=== PATIENT | male | born 1950 | race Caucasian/White ===

== ENCOUNTER → 2021-06-05 09:16 | Outpatient (CLI) | payer MEDICARE, SELFPAY ==
[2021-06-05 12:51] LABS: COVID19 -Nasal RAPID Negative (Negative)
== END ==
PROVIDERS: PCP Family Medicine; Visit Provider Family Medicine Sleep Medicine
DX: Z20.822 Contact with and (suspected) exposure to COVID-19 (principal)
CPT/HCPCS: 87635; C9803

== ENCOUNTER 2021-06-08 10:14 | Day surgery (SDC) | payer MEDICARE, SELFPAY ==
--- NOTE | 2021-06-08 | PATH_ITS ---
[facility] Accession Number: [id number] No. of containers..02 Tissue . 01 Material submitted: . PART A: colon - CECUM POLYP X2 PART B: colon - ASCENDING COLON POLYP . 02 Diagnosis: A. Cecal Polyps, Biopsies: Tubular adenoma x2. . B. Ascending Colon Polyp, Biopsy: Tubular adenoma. MRV 06/11/2021 1046 Local . 02 Electronically signed: . Drew Gao MD, PhD, Pathologist NPI- [id number] . 01 Gross description: . Part A: CECUM POLYP X2: Received in formalin are 2 fragment(s) of montoya, soft tissue measuring 0.3 x 0.3 x 0.2 cm to 0.7 x 0.2 x 0.2 cm submitted entirely in 1 cassette(s) Part B: ASCENDING COLON POLYP: Received in formalin is 1 fragment(s) of montoya, soft tissue measuring 0.5 x 0.3 x 0.3 cm submitted entirely in 1 cassette(s) /DMITRIY 06/09/20211957 Local . 02 Pathologist provided ICD-10: D12.0, D12.2 . 02 CPT . 653066, 522425 Specimen Comment: A courtesy copy of this report has been sent to [phone] Performed at: 01 [facility] [address], [place], [place] [id number] MD Renny Gunter MD Phone: [phone] Performed at: 02 [facility] [address] [place], [place] [id number] MD Lenka Andrews MD Phone: [phone]
[2021-06-08 10:53] VITALS: BP 118/78; PULSE 52; RESP 16; TEMP 36.7; O2SAT 98; BMI 26.5
[2021-06-08] MEDS: SODIUM CHLORIDE 0.9% 1,000 ML 84 ML IV (11:15)
--- NOTE | 2021-06-08 11:46 | PM.HP.1 ---
History of Present Illness History of Present Illness Date Patient Seen: 06/08/21 Time Patient Seen: 11:47 Chief complaint: COLONOSCOPY Narrative: Reported history of colon polyps. Last exam was 10 years ago. Patient History Family & Social History Social History: household members spouse Tobacco & Substance use: Smoking Status Never smoker alcohol intake frequency a few times a month Substance Use Type does not use Meds Home Medications and Allergies Home Medications Medication Instructions Recorded Confirmed Type No Known Home Medications 06/08/21 06/08/21 History Allergies Allergy/AdvReac Type Severity Reaction Status Date / Time No Known Drug Allergies Allergy Verified 06/08/21 10:52 Review of Systems Review of Systems ROS: Yes All systems reviewed with the patient and are negative except as otherwise documented Integumentary/Breasts Skin/Breast: Reports rash Comments: Right thigh x2 weeks Exam Vital Signs (past 8 hours): - 06/08/21 10:53 Temperature 98.1 F Pulse Rate 52 L Respiratory Rate 16 Blood Pressure 118/78 Pulse Oximetry 98 Oxygen Delivery Method Room Air Const General: cooperative and comfortable Orientation: alert HENMT Head: normocephalic Ears: external ears normal Nose: external nose normal Face and sinus: normal facial exam Mouth: oral mucosae normal Eyes General: appearance normal, both eyes and all related structures Neck Neck: normal visual inspection Chest Chest: normal inspection of the chest Resp Effort & Inspection: normal respiratory effort Cardio Rate: regular rate GI Inspection: normal to inspection Skin General: no rashes or lesions noted and No jaundice Rashes: rashes noted (Right lateral thigh an approximately 10 cm patch of maculopapular spots) Neuro General: patient alert and moves all extremities Cognition: normal cognition Speech: speech normal Extrem General: no pedal edema Psych Appearance: grossly normal Assessment & Plan Assessment & Plan narrative: 71-year-old male with personal history of colon polyps. Colonoscopy is planned for today. Time Spent With Patient Critical Care time: I spent a total of [] minutes of critical care time on this patient's care today; this time is exclusive of procedural time.
--- NOTE | 2021-06-08 11:50 | PM.PREOP ---
Pre-operative Note COVID-19 COVID-19 status: Negative Result date/Date tested (Pos, Neg/Pending): 06/05/21 Criteria for continued procedure: Possibility delay results in more complex future surgery or treatment Interval Note History & Physical reviewed/Exam performed by Physician: Yes Changes to H&P: No ASA Class (for procedural sedation): II
--- NOTE | 2021-06-08 12:52 | PM.OP.COLON ---
Operative Date/Time/Diagnoses Date of procedure: 06/08/21 Time of procedure: 12:53 Pre-op diagnosis: Personal history of colon polyps Post-op diagnosis: same Procedure & Clinicians Study performed: Colonoscopy with hot and cold snare polypectomies Same procedure as scheduled: Yes Indications: Personal history of colon polyps Surgeon: Filemon Anderson Procedure Notes SCOAP/Timeout: Done Procedure in detail: After the risks and benefits were explained, written and verbal informed consent was obtained. The patient was brought into the procedure room and placed into the left lateral decubitus position. Please see nurse electronics maintenance technician notes for sedation details. Digital rectal examination was accomplished. The scope was introduced into the patient and advanced under direct visualization to the cecum as identified by the appendiceal orifice and ileocecal valve. The scope was slowly withdrawn to carefully examine the mucosa for any defects or lesions. Comprehensive imaging was accomplished throughout the rectum including the dentate line. The colon was decompressed, the scope was then removed from the patient who tolerated the procedure well. Bowel prep fair with copious irrigation was rendered adequate Adult colonoscope Scope withdrawal time: 15 minutes Sedation minutes: 24 Complications: none Impression: There was some scattered diverticulosis noted in the left colon. In the cecum there was a diminutive 3 mm polyp removed with cold snare and a 6-7 mm sessile polyp removed with hot snare. In the ascending colon there was a 6 mm polyp sessile removed with hot snare. No additional significant pathology was appreciated throughout. Mild internal hemorrhoids grade 1 appreciated. Endoscopic diagnosis 1. Colon polyps 2. Diverticulosis 3. Grade 1 hemorrhoids Post-procedure Plan for aftercare: 1. Await histopathology 2. Repeat colonoscopy 3 years. Disposition: PACU
[2021-06-08 12:56] VITALS: BP 99/76; PULSE 60; RESP 18; TEMP 36.3; O2SAT 97
[2021-06-08 13:02] VITALS: BP 128/63; PULSE 57; RESP 15; O2SAT 98
[2021-06-08 13:06] VITALS: BP 120/82; PULSE 52; RESP 15; O2SAT 99
[2021-06-08 13:16] VITALS: BP 132/81; PULSE 50; RESP 15; TEMP 36.4; O2SAT 99
[2021-06-08 13:21] VITALS: BP 128/77; PULSE 49; RESP 16; O2SAT 99
== END 2021-06-08 13:33 | disposition home or self-care (01) ==
PROVIDERS: PCP Family Medicine; Referring Provider Internal Medicine Gastroenterology; Visit Provider Internal Medicine Gastroenterology
PROC: 0DJD8ZZ Inspection of Lower Intestinal Tract, Via Natural or Artificial Opening Endoscopic (ICD-10-PCS; CPT 45378; principal; 2021-06-08 11:30)
DX: Z12.11 Encounter for screening for malignant neoplasm of colon (principal); Z86.010 Personal history of colon polyps; K57.30 Diverticulosis of large intestine without perforation or abscess without bleeding; K64.0 First degree hemorrhoids; D12.0 Benign neoplasm of cecum; D12.2 Benign neoplasm of ascending colon
CPT/HCPCS: 45385; J2704

== ENCOUNTER → 2022-11-18 08:35 | Outpatient (CLI) | payer MEDICARE, SELFPAY ==
--- NOTE | 2022-11-18 08:36 | DI.RAD.S_ITS ---
PROCEDURE: FL BARIUM SWALLOW INDICATIONS: CHEST PRESSURE COMPARISON: None. FINDINGS: Function: There is moderate esophageal dysmotility. No elicited gastroesophageal reflux. There is normal transit of a calibrated barium tablet through the esophagus into the stomach. Morphology: Air-contrast images demonstrate normal mucosal morphology. There is a small sliding hiatal hernia. No esophageal strictures, extrinsic mass effects, or diverticula. Limited images of the stomach demonstrate normal appearance. IMPRESSION: 1. Moderate esophageal dysmotility. 2. Small sliding hiatal hernia. 3. No gastroesophageal reflux elicited during the exam. 4. No esophageal obstruction. Dictated by: Chris Brush M.D. on 11/18/2022 at 12:47 Approved by: Chris Brush M.D. on 11/18/2022 at 12:51
== END ==
PROVIDERS: PCP Family Medicine; Referring Provider Family Medicine; Visit Provider Family Medicine
DX: K22.4 Dyskinesia of esophagus (principal); K44.9 Diaphragmatic hernia without obstruction or gangrene; R07.89 Other chest pain
CPT/HCPCS: 74220

== ENCOUNTER → 2023-05-23 10:28 | Outpatient (CLI) | payer MEDICARE, SELFPAY ==
--- NOTE | 2023-05-23 | DI.MRI.S_ITS ---
PROCEDURE: MR SHOULDER RT WO CON INDICATIONS: DISORDER OF RIGHT ROTATOR CUFF TECHNIQUE: Noncontrast oblique coronal T2 fast spin echo with fat saturation, oblique sagittal T1 spin echo and T2 fast spin echo with fat saturation, axial T1 spin echo and T2 fast spin echo with fat saturation through the shoulder. COMPARISON: None. FINDINGS: Image quality: Excellent. Rotator cuff: Low-grade articular and bursal surface partial-thickness tear involving distal supraspinatus at its insertion on the humeral head is seen extending to musculotendinous junction. Moderate grade articular surface partial-thickness tear involving distal infraspinatus at its insertion on the humeral head is seen extending to musculotendinous junction. Low-grade intrasubstance partial-thickness tear is seen involving distal subscapularis. No full-thickness rotator cuff tendon rupture. Sagittal images demonstrate mild supraspinatus muscle atrophy. Significant edema within subscapularis muscle is noted with adjacent fluid. Bones and bursae: No bone marrow contusions or fractures. Moderate acromioclavicular joint osteoarthritic changes are seen with joint space narrowing and downward osteophyte formation depressing the musculotendinous junction of supraspinatus. The acromion demonstrates conventional anatomy, without an os acromiale. Small amount of subacromial subdeltoid bursal fluid is noted, no gross loose bodies. There is suggestion of subcortical cystic changes involving posterior and medial aspect of proximal humeral shaft/surgical neck. Capsule and soft tissues: There is signal abnormality and fraying of anterior inferior labrum at 4 to 6 o'clock position concerning for anterior-inferior labral tear. The long head of the biceps tendon demonstrates normal location and morphology. The rotator interval appears normal, without fibrosis. The coracohumeral ligament is normal in thickness. IMPRESSION: 1. Low-grade articular and bursal surface partial thickness tear involving distal supraspinatus extending to musculotendinous junction. Moderate grade articular surface partial-thickness tear involving distal infraspinatus extending to musculotendinous junction with suggestion of low to moderate grade intrasubstance partial-thickness tear involving infraspinatus muscle. Low-grade intrasubstance partial-thickness tear involving distal subscapularis. No full-thickness rotator cuff tendon or muscle rupture. Mild supraspinatus muscle atrophy. 2. Moderate acromioclavicular joint osteoarthritis. No fracture or dislocation. Small amount of subacromial subdeltoid bursal fluid, no gross loose bodies. Nonspecific subcortical cyst formation in posterior aspect of proximal left humeral shaft. 3. Suggestion of anterior inferior labral tear at 5 to 6 o'clock position. Dictated by: Blayne Anne M.D. on 05/23/2023 at 14:43 Approved by: Blayne Anne M.D. on 05/23/2023 at 14:52
== END ==
LOC: MRI 10:29
PROVIDERS: PCP Family Medicine; Referring Provider Orthopaedic Surgery; Visit Provider Orthopaedic Surgery
DX: M75.111 Incomplete rotator cuff tear or rupture of right shoulder, not specified as traumatic (principal); M19.011 Primary osteoarthritis, right shoulder; M67.911 Unspecified disorder of synovium and tendon, right shoulder
CPT/HCPCS: 73221

== ENCOUNTER → 2024-10-01 10:09 | Outpatient (CLI) | payer MEDICARE, SELFPAY ==
--- NOTE | 2024-10-01 11:07 | EKG_ITS ---
[facility] [address] [place] [address] Test Date: 2024-10-01 Pat Name: Mike Barry Jr Department: [facility] Room: Gender: Male Occupational Therapy Technician: [email or web address] : 1950 Requested By: Order Number: [id number] Reading MD: Brando Matthew Measurements Intervals [place] Rate: 40 P: 28 DC: 350 QRS: 57 QRSD: 94 T: 52 QT: 508 QTc: 414 Interpretive Statements Critical Test Result: Low HR Marked sinus bradycardia with 1st degree AV block Electronically Signed On 10-04-2024 17:08:38 PDT by Brando Matthew
== END ==
PROVIDERS: PCP Family Medicine; Referring Provider Internal Medicine Gastroenterology; Visit Provider Internal Medicine Gastroenterology
DX: R00.1 Bradycardia, unspecified (principal)
CPT/HCPCS: 93005

== ENCOUNTER 2024-10-31 11:12 | Day surgery (SDC) | payer MEDICARE, SELFPAY ==
[2024-10-31 11:35] VITALS: BP 138/68; PULSE 38; RESP 14; TEMP 36.5; O2SAT 100
--- NOTE | 2024-10-31 11:35 | P.HP_ITS ---
History of Present Illness History of Present Illness Date Patient Seen: 10/31/24 Chief complaint: Screening Colonoscopy Narrative: History of multiple colon polyps last colonoscopy 3 years ago [facility] Medical History (Updated 09/21/24 @ 08:45 by Natalie Schaefer RN) GERD (gastroesophageal reflux disease) Sinus node dysfunction Social History household members: spouse Smoking Status: Never smoker Meds Home Medications and Allergies Home Medications ?Medication ?Instructions ?Recorded ?Confirmed ?Type omeprazole 10 mg capsule,delayed 10 mg PO DAILY PRN ac id reflux 06/14/24 10/31/24 History release Allergies Allergy/AdvReac Type Severity Reaction Status Date / Time No Known Drug Allergies Allergy Verified 10/31/24 11:32 Assessment & Plan Assessment & Plan narrative: Follow-up large number of colon polyps. Risks, benefits, alternatives have been explained. Time-Based Coding :: [TOTAL MINUTES] spent with patient and on the chart (including review of chart, obtaining history, exam, reviewing outside data, placing orders, documenting exam and treatment plan, and counseling patient) on [DATE]. PROFEE Booking Agent Document charge(s): No
--- NOTE | 2024-10-31 11:35 | PM.OP.COLON ---
Operative Date/Time/Diagnoses Date of procedure: 10/31/24 Time of procedure: 12:20 Pre-op diagnosis: See indication and findings Post-op diagnosis: same Procedure & Clinicians Study performed: Colonoscopy Same procedure(s) as scheduled: Yes Indications: Multiple colon polyps history Surgeon: Jonnathan Courtney Anesthesia Type: Other Procedure Notes Procedure in detail: After informed consent was obtained the patient was placed in left lateral decubitus position. The video colonoscope was introduced the rectum slowly advanced cecum. Preparation was good. On slow withdrawal mucosa was carefully examined. The scope was removed. The patient tolerated procedure well. Blood loss none Complications none Sedation mac Findings 1. Scattered sigmoid diverticulosis 2. Otherwise negative colonoscopy to cecum Patient have follow-up colonoscopy in 5 years.
[2024-10-31] MEDS: LACTATED RINGERS 1,000 ML 42 ML IV (11:43)
[2024-10-31 12:25] VITALS: BP 109/72; PULSE 63; RESP 13; TEMP 36.3; O2SAT 99
[2024-10-31 12:29] VITALS: BP 117/78; PULSE 68; RESP 16; O2SAT 100
== END 2024-10-31 13:00 | disposition home or self-care (01) ==
PROVIDERS: PCP Family Medicine; Referring Provider Internal Medicine Gastroenterology; Visit Provider Internal Medicine Gastroenterology
PROC: 0DJD8ZZ Inspection of Lower Intestinal Tract, Via Natural or Artificial Opening Endoscopic (ICD-10-PCS; CPT 45378; principal; 2024-10-31 12:30)
DX: Z12.11 Encounter for screening for malignant neoplasm of colon (principal); Z86.0100 Personal history of colon polyps, unspecified; K57.30 Diverticulosis of large intestine without perforation or abscess without bleeding; K21.9 Gastro-esophageal reflux disease without esophagitis
CPT/HCPCS: G0105; J2704